=== PATIENT | female | born 1990 | race Caucasian/White ===

== ENCOUNTER 2016-10-05 13:44 | Emergency (ER) | payer OTHER ==
--- NOTE | 2016-10-05 15:13 | DIAGNOSTIC IMAGING REPORT ---
PROCEDURE: XR HAND 3 OR 4 VIEWS - LEFT INDICATION: TRAUMA/INJURY TECHNIQUE: Four views. COMPARISON: None. FINDINGS: Osseous structures, joint spaces, and soft tissues are normal. IMPRESSION: 1. Normal left hand.
--- NOTE | 2016-10-05 15:18 | ED NURSING NOTES ---
Clinical Report - Nurses [facility] [address] [place] [address] 10/05/2016 13:47 Patient: CARMINA HART TRIAGE Triage time 13:54 Oct 05 2016. Acuity: LEVEL 4. Chief Complaint: LEFT UPPER EXTREMITY PAIN, SWELLING and TINGLING. Alert. No acute distress. --13:59 Adrianna Santana R.N. 13:54 10/05/16. BP: 131/86. HR: 87. RR: 16. O2 saturation: 100%. Temp: 98.4 F. Pain level now: 02/27. --13:59 Adrianna Santana R.N. Weight: 81.6 kg stated. Height/Length: 63 inches Per Patient. BMI: 31.9. --13:59 Adrianna Santana R.N. Medications Depo-Provera Intramuscular. --13:55 Adrianna Santana R.N. Valtrex Oral. --13:55 Adrianna Sanatna R.N. PreviDent Dental. --13:56 Adrianna Santana R.N. Allergies No Known Drug Allergy. --13:56 Adrianna Santana R.N. History Arrived by private vehicle. Historian: patient. Injury occurred. This occurred today (1000 AM). Occurred at work. ( crushed in a pelican hook). Treatment TELEMARKETING AGENT: None. PAST MEDICAL HX: Immunizations: up-to-date. Last normal menstrual period- October 18 2014. Uses depo injections. Denies current . SOCIAL HX: Never smoker. No alcohol use or drug use. No infectious disease exposure. SELF HARM ASSESSMENT: A self harm assessment was performed. The patient answered "no" to the question "Do you have thoughts of harming or killing yourself?". FALL RISK ASSESSMENT: Fall risk assessment completed. No fall risk identified. NUTRITIONAL RISK ASSESSMENT: The nutritional risk assessment revealed no deficiencies. FUNCTIONAL ASSESSMENT: Functional assessment: no impairments noted. LEARNING NEEDS ASSESSMENT: The learning needs assessment revealed no barriers. ABUSE ASSESSMENT: Abuse assessment: The patient was asked "Do you feel safe in your home?". SKIN INTEGRITY ASSESSMENT: Skin integrity risk assessment completed. No skin integrity risk identified. --13:59 Adrianna Santana R.N. ADDITIONAL SURGERIES: Dental Surgery. Tonsillectomy. --13:56 Adrianna Santana R.N. Interventions ID band on patient. To room. --13:59 Adrianna Santana R.N. PHYSICAL ASSESSMENT Ambulatory to room. EXTREMITIES: Limited ROM present. Upper extremity edema. Neuro-vascular status intact to the extremity. Left hand: tenderness and swelling. SKIN: Skin is warm and dry. --14:00 Adrianna Santana R.N. NURSING PROGRESS NOTES Cold pack applied. Extremity elevated. Two patient identifiers checked. Call light placed in reach. Side rails up x 1. Bed placed in lowest position. Brakes of bed on. Patient ready for evaluation. --14:00 Adrianna Santana R.N. 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 --14:02 Adrianna Santana R.N. DISPOSITION / DISCHARGE 15:19 10/05/16. BP: 103/72. HR: 69. RR: 12. O2 saturation: 99%. Pain level now: 11/27. --15:20 Adrianna Santana R.N. Departure time: 15:29 Oct 05 2016. Condition at departure: unchanged. The following issues were addressed: pain control and comfort issues. No learning barriers present. Reviewed medication(s) side effects, precautions, dosing and course information. Reviewed referral to a primary care physician. Work note given. Patient verbalized understanding. Written instructions provided in Finnish. The patient was discharged home. She left the Emergency Department ambulatory and via private vehicle. Patient driving. --15:29 Adrianna aSntana R.N. Locked/Released at 10/05/2016 15:32 by Adrianna Santana R.N.
--- NOTE | 2016-10-05 15:18 | ED CLINICAL REPORT ---
Clinical Report - Physicians/Mid Levels [facility] [address] [place] [address] 10/05/2016 13:47 Patient: CARMINA HART Time Seen: 13:49; initial patient contact. Arrived- By private vehicle. Historian- patient. HISTORY OF PRESENT ILLNESS Chief Complaint: Injury to the left hand. The injury happened about 4 hours ago. Occurred at work. The patient sustained a crush injury- caught hand in machine. Patient is experiencing moderate pain. Patient denies injury to the head or neck. REVIEW OF SYSTEMS The patient has had swelling, and tingling. No numbness, weakness or skin laceration. All systems otherwise negative, except as recorded above. PAST HISTORY Dental Surgery. Tonsillectomy. The patient's dominant hand is the right. SOCIAL HISTORY Never smoker. No alcohol use or drug use. ADDITIONAL NOTES The nursing notes have been reviewed with agreement regarding the chief complaint, PMH and patient medications and allergies. PHYSICAL EXAM Appearance: Alert. Oriented X3. No acute distress. Skin: Skin warm and dry. Skin intact. Extremities: Dorsal left hand. Thenar eminence, left hand: moderate tenderness and swelling. Limited movement of the thumb secondary to pain (diminished flexion, extension, abduction, adduction and opposition). Neurovascular intact distally. No abrasion, ecchymosis or deformity. No wrist injury. Hand and wrist exam otherwise negative. Extremities otherwise negative. Neuro, Vascular and Tendons: Vascular status intact. Sensation intact. Motor intact. Tendon function intact. Neuro: Oriented X 3. No motor deficit. No sensory deficit. LABS, X-RAYS, AND EKG Rt Hand X-ray: No fracture. Normal alignment. No bony lesion, air in the soft tissue or foreign body. Soft tissues normal. Joint spaces normal. Views: AP, lateral and oblique. Technique: good. The X-rays were independently viewed by me and interpreted contemporaneously by me. Prior films were not available for comparison. PROGRESS AND PROCEDURES Disposition: Discharged home in good and improved condition. Condition: good. CLINICAL IMPRESSION Single contusion to the left hand.No hematoma or skin abrasion. INSTRUCTIONS Apply ice for 20 minutes four times a day. Don't apply ice directly to skin. Elevate affected areas above chest level. No work with left hand until released. Do not work with left hand until released. Your Current Medications: CONTINUE TAKING THE FOLLOWING MEDICATIONS: Depo-Provera Intramuscular. PreviDent Dental. Valtrex Oral. Prescription Medications: Hydrocodone/APAP 5mg / 325mg: take 1 orally every 6 hours as needed for pain. Dispense fifteen (15). No refill. Follow-up: Follow up with your doctor in about two days. Call for an appointment. Screening today revealed the patient's blood pressure to be in the normal range. (Electronically signed by Blair Robledo Dr. 10/05/2016 15:24)
--- NOTE | 2016-10-05 15:18 | ED NURSING NOTES ---
Clinical Report - Nurses [facility] [address] [place] [address] 10/05/2016 13:47 Patient: CARMINA HART TRIAGE Triage time 13:54 Oct 05 2016. Acuity: LEVEL 4. Chief Complaint: LEFT UPPER EXTREMITY PAIN, SWELLING and TINGLING. Alert. No acute distress. --13:59 Adrianna Santana R.N. 13:54 10/05/16. BP: 131/86. HR: 87. RR: 16. O2 saturation: 100%. Temp: 98.4 F. Pain level now: 02/27. --13:59 Adrianna Santana R.N. Weight: 81.6 kg stated. Height/Length: 63 inches Per Patient. BMI: 31.9. --13:59 Adrianna Santana R.N. Medications Depo-Provera Intramuscular. --13:55 Adrianna Santana R.N. Valtrex Oral. --13:55 Adrianna Santana R.N. PreviDent Dental. --13:56 Adrianna Santana R.N. Allergies No Known Drug Allergy. --13:56 Adrianna Santana R.N. History Arrived by private vehicle. Historian: patient. Injury occurred. This occurred today (1000 AM). Occurred at work. ( crushed in a pelican hook). Treatment MARKET SURVEY REPRESENTATIVE: None. PAST MEDICAL HX: Immunizations: up-to-date. Last normal menstrual period- October 18 2014. Uses depo injections. Denies current . SOCIAL HX: Never smoker. No alcohol use or drug use. No infectious disease exposure. SELF HARM ASSESSMENT: A self harm assessment was performed. The patient answered "no" to the question "Do you have thoughts of harming or killing yourself?". FALL RISK ASSESSMENT: Fall risk assessment completed. No fall risk identified. NUTRITIONAL RISK ASSESSMENT: The nutritional risk assessment revealed no deficiencies. FUNCTIONAL ASSESSMENT: Functional assessment: no impairments noted. LEARNING NEEDS ASSESSMENT: The learning needs assessment revealed no barriers. ABUSE ASSESSMENT: Abuse assessment: The patient was asked "Do you feel safe in your home?". SKIN INTEGRITY ASSESSMENT: Skin integrity risk assessment completed. No skin integrity risk identified. --13:59 Adrianna Santana R.N. ADDITIONAL SURGERIES: Dental Surgery. Tonsillectomy. --13:56 Adrianna Santana R.N. Interventions ID band on patient. To room. --13:59 Adrianna Santana R.N. PHYSICAL ASSESSMENT Ambulatory to room. EXTREMITIES: Limited ROM present. Upper extremity edema. Neuro-vascular status intact to the extremity. Left hand: tenderness and swelling. SKIN: Skin is warm and dry. --14:00 Adrianna Santana R.N. NURSING PROGRESS NOTES Cold pack applied. Extremity elevated. Two patient identifiers checked. Call light placed in reach. Side rails up x 1. Bed placed in lowest position. Brakes of bed on. Patient ready for evaluation. --14:00 Adrianna Santana R.N. 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 --14:02 Adrianna Santana R.N. DISPOSITION / DISCHARGE 15:19 10/05/16. BP: 103/72. HR: 69. RR: 12. O2 saturation: 99%. Pain level now: 11/27. --15:20 Adrianna Santana R.N. Departure time: 15:29 Oct 05 2016. Condition at departure: unchanged. The following issues were addressed: pain control and comfort issues. No learning barriers present. Reviewed medication(s) side effects, precautions, dosing and course information. Reviewed referral to a primary care physician. Work note given. Patient verbalized understanding. Written instructions provided in Australian. The patient was discharged home. She left the Emergency Department ambulatory and via private vehicle. Patient driving. --15:29 Adrianna Santana R.N. Locked/Released at 10/05/2016 15:32 by Adrianna Santana R.N.
--- NOTE | 2016-10-05 15:18 | ED ORDER SUMMARY ---
..... Patient: CARMINA HART OrderSheet [facility] VisitID: [id number] [address] [place] [address] 26y, F Registration Date/Time: 10/05/2016 ORDER SHEET Weight: 81.6 kg (stated) Allergies: No Known Drug Allergy GENERAL ORDERS: Hand 3 or 4V Left Urgent (14:03 10/05/2016 Zhao Culver per protocol) ([facility] 14:07 Ange) (15:32 Zhao Guerrero.Amarilis) MEDICATION ORDERS: IV FLUIDS: ORDER SHEET NOTES: [Electronically signed by Blair Robledo Dr. (15:24 10/05/2016)] [Electronically signed by Adrianna Santana R.N. (15:32 10/05/2016)] [Electronically locked/signed by Adrianna Santana R.N. (15:32 10/05/2016)]
--- NOTE | 2016-10-05 15:18 | ED CLINICAL REPORT ---
Clinical Report - Physicians/Mid Levels [facility] [address] [place] [address] 10/05/2016 13:47 Patient: CARMINA HART Time Seen: 13:49; initial patient contact. Arrived- By private vehicle. Historian- patient. HISTORY OF PRESENT ILLNESS Chief Complaint: Injury to the left hand. The injury happened about 4 hours ago. Occurred at work. The patient sustained a crush injury- caught hand in machine. Patient is experiencing moderate pain. Patient denies injury to the head or neck. REVIEW OF SYSTEMS The patient has had swelling, and tingling. No numbness, weakness or skin laceration. All systems otherwise negative, except as recorded above. PAST HISTORY Dental Surgery. Tonsillectomy. The patient's dominant hand is the right. SOCIAL HISTORY Never smoker. No alcohol use or drug use. ADDITIONAL NOTES The nursing notes have been reviewed with agreement regarding the chief complaint, PMH and patient medications and allergies. PHYSICAL EXAM Appearance: Alert. Oriented X3. No acute distress. Skin: Skin warm and dry. Skin intact. Extremities: Dorsal left hand. Thenar eminence, left hand: moderate tenderness and swelling. Limited movement of the thumb secondary to pain (diminished flexion, extension, abduction, adduction and opposition). Neurovascular intact distally. No abrasion, ecchymosis or deformity. No wrist injury. Hand and wrist exam otherwise negative. Extremities otherwise negative. Neuro, Vascular and Tendons: Vascular status intact. Sensation intact. Motor intact. Tendon function intact. Neuro: Oriented X 3. No motor deficit. No sensory deficit. LABS, X-RAYS, AND EKG Rt Hand X-ray: No fracture. Normal alignment. No bony lesion, air in the soft tissue or foreign body. Soft tissues normal. Joint spaces normal. Views: AP, lateral and oblique. Technique: good. The X-rays were independently viewed by me and interpreted contemporaneously by me. Prior films were not available for comparison. PROGRESS AND PROCEDURES Disposition: Discharged home in good and improved condition. Condition: good. CLINICAL IMPRESSION Single contusion to the left hand.No hematoma or skin abrasion. INSTRUCTIONS Apply ice for 20 minutes four times a day. Don't apply ice directly to skin. Elevate affected areas above chest level. No work with left hand until released. Do not work with left hand until released. Your Current Medications: CONTINUE TAKING THE FOLLOWING MEDICATIONS: Depo-Provera Intramuscular. PreviDent Dental. Valtrex Oral. Prescription Medications: Hydrocodone/APAP 5mg / 325mg: take 1 orally every 6 hours as needed for pain. Dispense fifteen (15). No refill. Follow-up: Follow up with your doctor in about two days. Call for an appointment. Screening today revealed the patient's blood pressure to be in the normal range. (Electronically signed by Blair Robledo Dr. 10/05/2016 15:24)
--- NOTE | 2016-10-05 15:18 | ED ORDER SUMMARY ---
..... Patient: CARMINA HART OrderSheet [facility] VisitID: [id number] [address] [place] [address] 26y, F Registration Date/Time: 10/05/2016 ORDER SHEET Weight: 81.6 kg (stated) Allergies: No Known Drug Allergy GENERAL ORDERS: Hand 3 or 4V Left Urgent (14:03 10/05/2016 Zhao Culver per protocol) ([facility] 14:07 Ange) (15:32 Zhao Guerrero.Amarilis) MEDICATION ORDERS: IV FLUIDS: ORDER SHEET NOTES: [Electronically signed by Blair Robledo Dr. (15:24 10/05/2016)] [Electronically signed by Adrianna Santana R.N. (15:32 10/05/2016)] [Electronically locked/signed by Adrianna Santana R.N. (15:32 10/05/2016)]
--- NOTE | 2016-10-05 15:32 | ED MED RECONCILIATION SUMMARY ---
Patient: CARMINA HART Medication Reconciliation Report [facility] VisitID: [id number] [address] [place] [address] 26y, F Registration Date/Time: 10/05/2016 Weight: 81.6 kg Height/Length: 63 in. BMI: 31.9 ALLERGIES: No Known Drug Allergy The patient's Home Medications are listed below: CONTINUE TAKING THE FOLLOWING MEDICATIONS: Depo-Provera Intramuscular PreviDent Dental Valtrex Oral The source(s) of the original Home Medication information: Not obtained. The following Medications were given to the patient in the Emergency Department: None. The following Medications were prescribed to the patient: Hydrocodone/APAP 5mg / 325mg: take 1 orally every 6 hours as needed for pain. Dispense fifteen (15). No refill. -- Blair Robledo Dr.
--- NOTE | 2016-10-05 15:32 | ED MED RECONCILIATION SUMMARY ---
Patient: CARMINA HART Medication Reconciliation Report [facility] VisitID: [id number] [address] [place] [address] 26y, F Registration Date/Time: 10/05/2016 Weight: 81.6 kg Height/Length: 63 in. BMI: 31.9 ALLERGIES: No Known Drug Allergy The patient's Home Medications are listed below: CONTINUE TAKING THE FOLLOWING MEDICATIONS: Depo-Provera Intramuscular PreviDent Dental Valtrex Oral The source(s) of the original Home Medication information: Not obtained. The following Medications were given to the patient in the Emergency Department: None. The following Medications were prescribed to the patient: Hydrocodone/APAP 5mg / 325mg: take 1 orally every 6 hours as needed for pain. Dispense fifteen (15). No refill. -- Blair Robledo Dr.
--- NOTE | 2016-10-05 15:32 | ED DISCHARGE INSTRUCTIONS ---
Patient: CARMINA HART General Instructions [facility] VisitID: [id number] [address] [place] [address] 26y, F Registration Date/Time: 10/05/2016 Single contusion to the left hand.No hematoma or skin abrasion. INSTRUCTIONS Apply ice for 20 minutes four times a day. Don't apply ice directly to skin. Elevate affected areas above chest level. No work with left hand until released. Do not work with left hand until released. Your Current Medications: CONTINUE TAKING THE FOLLOWING MEDICATIONS: Depo-Provera Intramuscular. PreviDent Dental. Valtrex Oral. Prescription Medications: Hydrocodone/APAP 5mg / 325mg: take 1 orally every 6 hours as needed for pain. Dispense fifteen (15). No refill. Follow-up: Follow up with your doctor in about two days. Call for an appointment. Screening today revealed the patient's blood pressure to be in the normal range. ADDITIONAL INFORMATION Contusion,Soft Tissue You have a CONTUSION, which is a bruise with swelling and some bleeding under the skin. There are no broken bones. This injury takes a few days to a few weeks to heal. Home Care: 1) Keep the injured part elevated to reduce pain and swelling. This is especially important during the first 48 hours. 2) Make an ice pack (ice cubes in a plastic bag, wrapped in a towel) and apply for 20 minutes every 1-2 hours the first day. Continue this 3-4 times a day until the pain and swelling goes away. 3) You may use acetaminophen (Tylenol) or ibuprofen (Motrin, Advil) to control pain, unless another pain medicine was prescribed. [ NOTE : If you have chronic liver or kidney disease or ever had a stomach ulcer or GI bleeding, talk with your doctor before using these medicines.] Follow Up with your doctor or this facility if you are not improving within the next THREE days. [NOTE: If X-rays were taken, they will be reviewed by a radiologist. You will be notified of any new findings that may affect your care.] Get Prompt Medical Attention if any of the following occur: -- Pain or swelling increases -- Injured arm or leg becomes cold, blue, numb or tingly -- Redness, warmth or drainage from the skin Hydrocodone Bitartrate, Acetaminophen Oral tablet What is this medicine? ACETAMINOPHEN; HYDROCODONE (a set a DINA spencer fen; dante droe KOE done) is a pain reliever. It is used to treat mild to moderate pain. How should I use this medicine? Take this medicine by mouth. Swallow it with a full glass of water. Follow the directions on the prescription label. If the medicine upsets your stomach, take the medicine with food or milk. Do not take more than you are told to take. Talk to your merchandise carrier regarding the use of this medicine in children. This medicine is not approved for use in children. What side effects may I notice from receiving this medicine? Side effects that you should report to your doctor or health ambulatory care coordinator as soon as possible: allergic reactions like skin rash, itching or hives, swelling of the face, lips, or tongue breathing problems confusion feeling faint or lightheaded, falls stomach pain yellowing of the eyes or skin Side effects that usually do not require medical attention (report to your doctor or health ambulatory care coordinator if they continue or are bothersome): nausea, vomiting stomach upset What may interact with this medicine? alcohol antihistamines isoniazid medicines for depression, anxiety, or psychotic disturbances medicines for sleep muscle relaxants naltrexone narcotic medicines (opiates) for pain phenobarbital ritonavir tramadol What if I miss a dose? If you miss a dose, take it as soon as you can. If it is almost time for your next dose, take only that dose. Do not take double or extra doses. Where should I keep my medicine? Keep out of the reach of children. This medicine can be abused. Keep your medicine in a safe place to protect it from theft. Do not share this medicine with anyone. Selling or giving away this medicine is dangerous and against the law. Store at room temperature between 15 and 30 degrees C (59 and 86 degrees F). Protect from light. Keep container tightly closed. Throw away any unused medicine after the expiration date. Discard unused medicine and used packaging carefully. Pets and children can be harmed if they find used or lost packages. What should I tell my health care provider before I take this medicine? They need to know if you have any of these conditions: brain tumor Crohn's disease, inflammatory bowel disease, or ulcerative colitis drink more than 3 alcohol-containing drinks per day drug abuse or addiction head injury heart or circulation problems kidney disease or problems going to the bathroom liver disease lung disease, asthma, or breathing problems an unusual or allergic reaction to acetaminophen, hydrocodone, other opioid analgesics, other medicines, foods, dyes, or preservatives or trying to get breast-feeding What should I watch for while using this medicine? Tell your doctor or health ambulatory care coordinator if your pain does not go away, if it gets worse, or if you have new or a different type of pain. You may develop tolerance to the medicine. Tolerance means that you will need a higher dose of the medicine for pain relief. Tolerance is normal and is expected if you take the medicine for a long time. Do not suddenly stop taking your medicine because you may develop a severe reaction. Your body becomes used to the medicine. This does NOT mean you are addicted. Addiction is a behavior related to getting and using a drug for a non-medical reason. If you have pain, you have a medical reason to take pain medicine. Your doctor will tell you how much medicine to take. If your doctor wants you to stop the medicine, the dose will be slowly lowered over time to avoid any side effects. You may get drowsy or dizzy when you first start taking the medicine or change doses. Do not drive, use machinery, or do anything that may be dangerous until you know how the medicine affects you. Stand or sit up slowly. There are different types of narcotic medicines (opiates) for pain. If you take more than one type at the same time, you may have more side effects. Give your health care provider a list of all medicines you use. Your doctor will tell you how much medicine to take. Do not take more medicine than directed. Call emergency for help if you have problems breathing. The medicine will cause constipation. Try to have a bowel movement at least every 2 to 3 days. If you do not have a bowel movement for 3 days, call your doctor or health ambulatory care coordinator. Too much acetaminophen can be very dangerous. Do not take Tylenol (acetaminophen) or medicines that contain acetaminophen with this medicine. Many non-prescription medicines contain acetaminophen. Always read the labels carefully. You have been given the following additional information: Contusion, Soft Tissue Hydrocodone Bitartrate, Acetaminophen Oral tablet No work with left hand until released. Do not work with left hand until released. (Electronically signed by Blair Robledo Dr. 10/05/2016 15:24)
--- NOTE | 2016-10-05 15:32 | ED MAR SUMMARY ---
..... Medication Administration Record [facility] [address] [place], [place] [id number] Patient: CARMINA HART Visit ID: [id number] 26y, F Weight: 81.6 kg Height/Length: 63 in BMI: 31.9 ALLERGIES: No Known Drug Allergy
--- NOTE | 2016-10-05 15:32 | ED MAR SUMMARY ---
..... Medication Administration Record [facility] [address] [place], [place] [id number] Patient: CARMINA HART Visit ID: [id number] 26y, F Weight: 81.6 kg Height/Length: 63 in BMI: 31.9 ALLERGIES: No Known Drug Allergy
--- NOTE | 2016-10-05 15:32 | ED DISCHARGE INSTRUCTIONS ---
Patient: CARMINA HART General Instructions [facility] VisitID: [id number] [address] [place] [address] 26y, F Registration Date/Time: 10/05/2016 Single contusion to the left hand.No hematoma or skin abrasion. INSTRUCTIONS Apply ice for 20 minutes four times a day. Don't apply ice directly to skin. Elevate affected areas above chest level. No work with left hand until released. Do not work with left hand until released. Your Current Medications: CONTINUE TAKING THE FOLLOWING MEDICATIONS: Depo-Provera Intramuscular. PreviDent Dental. Valtrex Oral. Prescription Medications: Hydrocodone/APAP 5mg / 325mg: take 1 orally every 6 hours as needed for pain. Dispense fifteen (15). No refill. Follow-up: Follow up with your doctor in about two days. Call for an appointment. Screening today revealed the patient's blood pressure to be in the normal range. ADDITIONAL INFORMATION Contusion,Soft Tissue You have a CONTUSION, which is a bruise with swelling and some bleeding under the skin. There are no broken bones. This injury takes a few days to a few weeks to heal. Home Care: 1) Keep the injured part elevated to reduce pain and swelling. This is especially important during the first 48 hours. 2) Make an ice pack (ice cubes in a plastic bag, wrapped in a towel) and apply for 20 minutes every 1-2 hours the first day. Continue this 3-4 times a day until the pain and swelling goes away. 3) You may use acetaminophen (Tylenol) or ibuprofen (Motrin, Advil) to control pain, unless another pain medicine was prescribed. [ NOTE : If you have chronic liver or kidney disease or ever had a stomach ulcer or GI bleeding, talk with your doctor before using these medicines.] Follow Up with your doctor or this facility if you are not improving within the next THREE days. [NOTE: If X-rays were taken, they will be reviewed by a radiologist. You will be notified of any new findings that may affect your care.] Get Prompt Medical Attention if any of the following occur: -- Pain or swelling increases -- Injured arm or leg becomes cold, blue, numb or tingly -- Redness, warmth or drainage from the skin Hydrocodone Bitartrate, Acetaminophen Oral tablet What is this medicine? ACETAMINOPHEN; HYDROCODONE (a set a DINA spencer fen; dante droe KOE done) is a pain reliever. It is used to treat mild to moderate pain. How should I use this medicine? Take this medicine by mouth. Swallow it with a full glass of water. Follow the directions on the prescription label. If the medicine upsets your stomach, take the medicine with food or milk. Do not take more than you are told to take. Talk to your cryptologic technician technical regarding the use of this medicine in children. This medicine is not approved for use in children. What side effects may I notice from receiving this medicine? Side effects that you should report to your doctor or health housekeeper child care as soon as possible: allergic reactions like skin rash, itching or hives, swelling of the face, lips, or tongue breathing problems confusion feeling faint or lightheaded, falls stomach pain yellowing of the eyes or skin Side effects that usually do not require medical attention (report to your doctor or health housekeeper child care if they continue or are bothersome): nausea, vomiting stomach upset What may interact with this medicine? alcohol antihistamines isoniazid medicines for depression, anxiety, or psychotic disturbances medicines for sleep muscle relaxants naltrexone narcotic medicines (opiates) for pain phenobarbital ritonavir tramadol What if I miss a dose? If you miss a dose, take it as soon as you can. If it is almost time for your next dose, take only that dose. Do not take double or extra doses. Where should I keep my medicine? Keep out of the reach of children. This medicine can be abused. Keep your medicine in a safe place to protect it from theft. Do not share this medicine with anyone. Selling or giving away this medicine is dangerous and against the law. Store at room temperature between 15 and 30 degrees C (59 and 86 degrees F). Protect from light. Keep container tightly closed. Throw away any unused medicine after the expiration date. Discard unused medicine and used packaging carefully. Pets and children can be harmed if they find used or lost packages. What should I tell my health care provider before I take this medicine? They need to know if you have any of these conditions: brain tumor Crohn's disease, inflammatory bowel disease, or ulcerative colitis drink more than 3 alcohol-containing drinks per day drug abuse or addiction head injury heart or circulation problems kidney disease or problems going to the bathroom liver disease lung disease, asthma, or breathing problems an unusual or allergic reaction to acetaminophen, hydrocodone, other opioid analgesics, other medicines, foods, dyes, or preservatives or trying to get breast-feeding What should I watch for while using this medicine? Tell your doctor or health housekeeper child care if your pain does not go away, if it gets worse, or if you have new or a different type of pain. You may develop tolerance to the medicine. Tolerance means that you will need a higher dose of the medicine for pain relief. Tolerance is normal and is expected if you take the medicine for a long time. Do not suddenly stop taking your medicine because you may develop a severe reaction. Your body becomes used to the medicine. This does NOT mean you are addicted. Addiction is a behavior related to getting and using a drug for a non-medical reason. If you have pain, you have a medical reason to take pain medicine. Your doctor will tell you how much medicine to take. If your doctor wants you to stop the medicine, the dose will be slowly lowered over time to avoid any side effects. You may get drowsy or dizzy when you first start taking the medicine or change doses. Do not drive, use machinery, or do anything that may be dangerous until you know how the medicine affects you. Stand or sit up slowly. There are different types of narcotic medicines (opiates) for pain. If you take more than one type at the same time, you may have more side effects. Give your health care provider a list of all medicines you use. Your doctor will tell you how much medicine to take. Do not take more medicine than directed. Call emergency for help if you have problems breathing. The medicine will cause constipation. Try to have a bowel movement at least every 2 to 3 days. If you do not have a bowel movement for 3 days, call your doctor or health housekeeper child care. Too much acetaminophen can be very dangerous. Do not take Tylenol (acetaminophen) or medicines that contain acetaminophen with this medicine. Many non-prescription medicines contain acetaminophen. Always read the labels carefully. You have been given the following additional information: Contusion, Soft Tissue Hydrocodone Bitartrate, Acetaminophen Oral tablet No work with left hand until released. Do not work with left hand until released. (Electronically signed by Blair Robledo Dr. 10/05/2016 15:24)
== END 2016-10-05 15:30 | disposition home or self-care (01) ==
LOC: ED SRH 13:44
DX: S60.222A Contusion of left hand, initial encounter (principal); W23.1XXA Caught, crushed, jammed, or pinched between stationary objects, initial encounter; Y99.0 Civilian activity done for income or pay; Y92.89 Other specified places as the place of occurrence of the external cause